=== PATIENT | female | born 1945 | race Caucasian/White ===

== ENCOUNTER → 2023-03-16 11:13 | Outpatient (REF) | payer OTHER, SELFPAY ==
[2023-03-19 06:25] LABS: Pancreatic Elastase, Fecal 667 ug/g (>=100)
== END ==
LOC: REG 11:13
PROVIDERS: ATTENDING PHYSICIAN Internal Medicine; FAMILY PHYSICIAN Family Medicine
DX: R19.7 Diarrhea, unspecified (principal)
CPT/HCPCS: 82653

== ENCOUNTER → 2023-05-26 10:59 | Outpatient (REF) | payer OTHER, SELFPAY ==
[2023-05-26 12:25] LABS: Progesterone 8.03 ng/ml
[2023-05-26 12:40] LABS: Cortisol, Random 17.2 ug/dl
[2023-05-26 12:41] LABS: Estradiol 88.1 pg/ml
[2023-05-27 23:01] LABS: DHEA Sulfate 149 ug/dL (12-154)
[2023-05-28 19:40] LABS: Estrogens, Total 130.5 pg/mL; Estrone 94.5 pg/mL
[2023-05-29 18:50] LABS: Free Testosterone 1.5 pg/mL (0.6-3.8); Sex Hormone Binding Globulin 45 nmol/L (17-125); Total Testosterone,Female/Chil 11 ng/dL (5-32)
== END ==
LOC: REG 10:59
PROVIDERS: ATTENDING PHYSICIAN Family Medicine
DX: Z78.0 Asymptomatic menopausal state (principal)
CPT/HCPCS: 36415; 82533; 82627; 82670; 82671; 84144; 84270; 84402; 84403

== ENCOUNTER → 2023-07-01 14:25 | Outpatient (REF) | payer OTHER, SELFPAY ==
[2023-07-01 16:16] LABS: Free T3 2.67 pg/ml (2.77-5.27); Free T4 0.75 ng/dl (0.78-2.19)
[2023-07-01 16:30] LABS: TSH 3.04 uIU/ml (0.47-4.68)
[2023-07-03 12:39] LABS: Thyroid Peroxidase Ab (TPO) 0.7 IU/mL (0.0-9.0)
[2023-07-03 12:48] LABS: Thyroglobulin 5.7 ng/mL (1.3-31.8); Thyroglobulin Antibodies <0.9 IU/mL (0.0-4.0)
== END ==
LOC: REG 14:25
PROVIDERS: ATTENDING PHYSICIAN Family Medicine
DX: E03.9 Hypothyroidism, unspecified (principal)
CPT/HCPCS: 36415; 84432; 84439; 84443; 84481; 86376; 86800

== ENCOUNTER 2023-08-04 14:55 | Outpatient (RCR) | payer OTHER, SELFPAY | END 2023-08-05 07:35 | disposition home or self-care (01) | LOC: RPT 14:55 | PROVIDERS: ATTENDING PHYSICIAN Family Medicine | DX: M47.816 Spondylosis without myelopathy or radiculopathy, lumbar region (principal); Z73.6 Limitation of activities due to disability | CPT/HCPCS: 97010; 97110; 97162 ==

== ENCOUNTER 2023-08-31 11:06 | Emergency (ER) | payer OTHER, SELFPAY ==
[2023-08-31 11:12] VITALS: BP 167/84
--- NOTE | 2023-08-31 12:07 | ED.MUSCINJ ---
HPI-Injury
General
Chief Complaint: Musculo-Skeletal Complaint
Source: patient
Exam Limitations: none
Time Seen by Provider: 08/31/23 11:51
History of Present Illness-Injury
Initial Injury comments:
78-year-old female presents with 2 days worth of worsening right-sided neck pain. She was rolling over in bed and felt a crack in her neck. Since then she has had pain to the neck with decreased range of motion. She denies any arm pain chest pain
or shortness of breath. She has tried CBD without relief. She is using an ice pack. No other
Past History
Past History
ED Past Medical History: Other (Colon cancer in remission)
ED Past Surgical History: Other ('4 feet of colon resected')
Social History
Tobacco: Non-smoker
Alcohol: None
Personal:
Employment: Employed
Family History
Family History: Other
Phy Exam
Physical Exam
Physical Exam:
General: Well-appearing uncomfortable female no acute respiratory distress
HEENT: Normocephalic atraumatic
Heart: Regular rate and rhythm no murmur
Musculoskeletal exam: Patient is tender diffusely about the cervical spine and the right paraspinous area. She has decreased range of motion of the cervical spine. She has good strength to the upper extremities
Skin is warm no rash
Vascular: 2 + radial pulse right wrist
Injury Course
Orders/Labs/Results
Orders:
Orders
08/31/23 12:05
CR Cervical Spine 2 or 3 Vw Urgent
Comment:
Reason For Exam: neck pain
MDM/Problems Addressed
Differential Diagnosis Includes:
neck pain. Strain vs fracture vs DJD vs radiculopathy
X-rays pending
*Critical Care Note
Total Time (30-74mins, 75-104mins- exclusive of procedures): Not Applicable
Update Note
Update Note:
Xray negative for acute finding. Suspect cervical strain. Patient declined any medications. Recommended warm compresses stable for d/c
ED Attending Note
-
Portions of this chart may have been created with voice recognition software.� Occasional wrong word or��sound alike� substitutions may have occurred due to the inherent limitations of voice recognition software.
Discharge Plan
Departure
Patient Disposition: Home (Routine Discharge)
Date of Disposition: 08/31/23
Time of Disposition: 13:34
Patient with high blood pressure during this ER visit?: No
Discharge Problem:
Cervical strain
Instructions: Muscle and Bone Pain (DC)
Prescriptions:
No Action
calcium carbonate [Antacid (calcium carbonate)] 1 TABLET tablet,chewable
750 mg PO PRN PRN (Reason: gerd)
gabapentin 100 MG capsule
100 mg PO PRN PRN (Reason: pain)
levothyroxine 88 MCG capsule
88 mcg PO PER PROTOCOL
Patient Comments:
takes 4 times a week
levothyroxine 75 MCG capsule
75 mcg PO PER PROTOCOL
Patient Comments:
pt takes three times a week
mvn-mn-vit C-B. [id number] [Airborne Plus Probiotic] 1 EACH tablet,chewable
1 ea PO QIDPRN PRN (Reason: protect bowels)
Biest/Progesterone
0.5 tab PO DAILY
Patient Comments:
Biest/progesterone 215/150mg 1/2 myra/day
sod sulf-pot chloride-mag sulf [Sutab] 1.479 GM tablet
1.479 gm PO ONCE
Referrals:
Barak Reilly, DO [Family Provider] -
Activity Restrictions/Additional Instructions:
Continue with warm compresses. Return if needed, otherwise follow up with PMD.
Interventions
Interventions:
*Risk Screen - Suicide Last Done: 08/31/23 11:12
*General Assessment Last Done: 08/31/23 11:44
*Neglect/Abuse Screening Last Done: 08/31/23 11:12
*ED COVID-19 Vaccine History Last Done: 08/31/23 11:12
ED-Musculoskeletal Assessment Last Done: 08/31/23 11:44
Discharge Date and Time
Print Language: YI
== END 2023-08-31 13:46 | disposition home or self-care (01) ==
LOC: EMR 11:06
PROVIDERS: EMERGENCY PHYSICIAN Emergency Medicine; FAMILY PHYSICIAN Family Medicine
DX: S16.1XXA Strain of muscle, fascia and tendon at neck level, initial encounter (principal); X58.XXXA Exposure to other specified factors, initial encounter; Z85.038 Personal history of other malignant neoplasm of large intestine; Z98.0 Intestinal bypass and anastomosis status; Z91.040 Latex allergy status; Z91.011 Allergy to milk products; Z88.8 Allergy status to other drugs, medicaments and biological substances; Z91.018 Allergy to other foods; Z91.048 Other nonmedicinal substance allergy status
CPT/HCPCS: 99283; 72040

== ENCOUNTER 2023-08-31 11:21 | Outpatient (RCR) | payer OTHER, SELFPAY | END 2023-08-31 23:59 | disposition home or self-care (01) | LOC: RPT 11:21 | PROVIDERS: ATTENDING PHYSICIAN Family Medicine | DX: I89.0 Lymphedema, not elsewhere classified (principal); Z73.6 Limitation of activities due to disability; Z91.81 History of falling | CPT/HCPCS: 97162; 97530 ==

== ENCOUNTER 2023-09-28 15:00 | Outpatient (RCR) | payer OTHER, SELFPAY | END 2023-09-28 23:59 | disposition home or self-care (01) | LOC: RPT 15:00 | PROVIDERS: ATTENDING PHYSICIAN Family Medicine | DX: I89.0 Lymphedema, not elsewhere classified (principal); Z73.6 Limitation of activities due to disability | CPT/HCPCS: 97140; 97164; 97530 ==

== ENCOUNTER → 2023-10-01 14:20 | Outpatient (REF) | payer OTHER, SELFPAY | LOC: RCS 14:20 | PROVIDERS: ATTENDING PHYSICIAN Internal Medicine Cardiovascular Disease; FAMILY PHYSICIAN Family Medicine | DX: R06.02 Shortness of breath (principal) | CPT/HCPCS: 93306 ==

== ENCOUNTER 2023-10-28 15:03 | Outpatient (RCR) | payer OTHER, SELFPAY | END 2023-10-28 23:59 | disposition home or self-care (01) | LOC: RPT 15:03 | PROVIDERS: ATTENDING PHYSICIAN Family Medicine | DX: I89.0 Lymphedema, not elsewhere classified (principal); R22.32 Localized swelling, mass and lump, left upper limb; R22.31 Localized swelling, mass and lump, right upper limb; Z73.6 Limitation of activities due to disability | CPT/HCPCS: 97110; 97140; 97530 ==

== ENCOUNTER 2023-10-31 17:22 | Emergency (ER) | payer OTHER, SELFPAY ==
[2023-10-31 17:26] VITALS: BP 144/72
[2023-10-31 17:47] LABS: % Basophils 0.4 % (0-2); % Eosinophils 1.3 % (0-6); % Immature Granulocytes 0.4 % (0-0.5); % Monocytes 6.5 % (1.7-9.3); % Neutrophils 77.4 % (42.2-75.2); Absolute Eosinophils 0.1 10^3/uL (0-0.7); Absolute Lymphocytes 1.5 10^3/uL (1.2-3.4); Absolute Monocytes 0.7 10^3/uL (0.1-0.6); Absolute Neutrophils 8.4 10^3/uL (1.4-6.5); Hematocrit 35.9 % (37.0-47.0); Mean Corp Hgb Conc. 33.4 g/dL (33.0-37.0); Mean Corpuscular Hgb 28.6 pg (27.0-31.0); Mean Corpuscular Volume 85.5 fL (81.0-99.0); Mean Platelet Volume 8.6 fL (7.4-10.4); Nucleated Red Blood Cells % 0 %; Platelet Count 271 10^3/uL (130-400); Red Cell Dist. Width 15.2 % (11.5-14.5); White Blood Cell Count 10.8 10^3/uL (4.8-10.8)
[2023-10-31 18:05] LABS: ALT (SGPT) 17 U/L (0-35); AST (SGOT) 25 U/L (14-36); Albumin 3.9 g/dl (3.5-5.0); Alkaline Phosphatase 108 U/L (38-126); Blood Urea Nitrogen 18 mg/dl (7-17); Calcium 8.9 mg/dl (8.4-10.2); Carbon Dioxide 24 mmol/L (22-30); Chloride 105 mmol/L (98-107); Glucose 95 mg/dl (70-99); Potassium 4.1 mmol/L (3.5-5.1); Sodium 140 mmol/L (135-145); Total Bilirubin 0.4 mg/dl (0.2-1.3); Total Protein 6.7 g/dl (6.3-8.2); eGFR > 60.00
[2023-10-31 18:11] LABS: COVID-19 Antigen Negative (Negative)
[2023-10-31 18:53] VITALS: BMI 39.0
[2023-10-31 18:56] VITALS: BP 125/71
--- NOTE | 2023-10-31 19:32 | ED.GENMED ---
History of Present Illness
General
Chief Complaint: Cough
Source: patient
Time Seen by Provider: 10/31/23 18:03
History of Present Illness
History of Present Illness:
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
that it seems to be a little bit worse than usual over the last 2 days. Patient also endorses some postnasal drip, sinus congestion, headache and states that over the last 2 days she coughed so hard that it caused her to vomit 1 time. Patient
notes a fever with Tmax of 100 yesterday, has not taken any Motrin or Tylenol today, no known sick contacts recent travel or recent antibiotics. Patient denies chest pain, palpitations, abdominal pain, current nausea, urinary symptoms or any other
concerns.
Past History
Past History
ED Past Medical History: Hypothyroidism and Other (Colon cancer in remission)
ED Past Surgical History: Cholecystectomy and Other ('4 feet of colon resected')
Social History
Tobacco: Non-smoker
Alcohol: None
Drug: None
Personal:
Living: alone
Employment: Employed
Family History
Family History: Other
Review of Systems
Review of Systems
All Other Systems: ROS reviewed and negative except as documented in HPI and ROS
Phy Exam
Physical Exam
Physical Exam:
GENERAL: Alert , in no apparent distress
HEAD: NCAT
EYE: conjunctiva clear
NECK: Supple
ENT: o/p clr, mmm.
CARDIAC: Regular rate and rhythm
LUNGS: Clear breath sounds bilaterally, no acute respiratory distress, no wheezes/rales/rhonchi
NEUROLOGICAL: Alert and oriented
SKIN: Warm and dry, skin intact.
MUSCULOSKELETAL: well perfused.
PSYCH: Normal and appropriate interaction.
Scores
Heart Failure Risk
Heart Failure Risk Score: Not Applicable
Heart Score for Chest Pain Patients
STEMI patient?: Not applicable
Withdrawal Assessment of Alcohol
Withdrawal Assessment Completed?: Not applicable
Course
Orders/Labs/Results
Orders:
Orders
10/31/23 17:39
COVID-19 Antigen Urgent
Source: Nasal Swab
Complete Blood Count/With Diff Urgent
Comprehensive Metabolic Panel Urgent
10/31/23 18:02
CR Chest - 2 Views Urgent
Comment:
Reason For Exam: cough, fever
10/31/23 18:50
Influenza A+B Rapid Molecular Urgent
LATISHA Source: Nasal Swab
Specimen Description:
Abnormal Lab Results
10/31/23
17:39
Hct 35.9 L %
(37.0-47.0)
RDW 15.2 H %
(11.5-14.5)
Absolute Neuts (auto) 8.4 H 10^3/uL
(1.4-6.5)
Absolute Monos (auto) 0.7 H 10^3/uL
(0.1-0.6)
Neutrophils % 77.4 H %
(42.2-75.2)
Lymphocytes % 14.0 L %
(20.5-51.1)
BUN 18 H mg/dl
(7-17)
10/31/23 17:39
10/31/23 17:39
Vital Signs
Initial and Last Documented VS:
Initial Vital Signs
Temp Pulse Resp BP Pulse Ox
100.3 F 89 16 144/72 98
10/31/23 17:26 10/31/23 17:26 10/31/23 17:26 10/31/23 17:26 10/31/23 17:26
Last Documented Vital Signs
Temp Pulse Resp BP Pulse Ox
100.3 F 93 16 125/71 97
10/31/23 17:26 10/31/23 18:53 10/31/23 18:53 10/31/23 18:56 10/31/23 19:30
MDM/Problems Addressed
Differential Diagnosis Includes:
COVID, flu, other viral etiology, bronchitis, pneumonia, PE considered however given the other URI-like symptoms thought to be much less likely
MDM/Problems Addressed:
78-year-old female presenting to the emergency department for evaluation of acute on chronic cough, noted she coughed hard enough to make her vomit. No acute respiratory distress. Does have a low-grade temperature here. Declining any medications
stating she is very sensitive to medications and prefers not to take any. Labs initiated while in triage and patient has no leukocytosis and COVID testing was negative. Will add on a flu test at patient's request. Chest x-ray shows no acute
abnormalities.
*Radiology
Radiology exam reviewed: preliminary read by ED provider (Unremarkable chest x-ray)
*Pulse Oximetry
Patient hypoxic: no
*Critical Care Note
Total Time (30-74mins, 75-104mins- exclusive of procedures): Not Applicable
Data Reviewed
Review of Other/Old Records Reveals: Labs and Radiology Studies
Patient Management
Escalation/DeEscalation of care consider admission/obs:
Flu negative. Pulse ox remains WNL. Stable for d/c home. Offered Rx for abx to hold if symptoms do not improve but patient declines. Advised she follow up with PCP for further eval if symptoms persist
ED Attending Note
-
Portions of this chart may have been created with voice recognition software.� Occasional wrong word or��sound alike� substitutions may have occurred due to the inherent limitations of voice recognition software.
Discharge Plan
Departure
Patient Disposition: Home (Routine Discharge)
Date of Disposition: 10/31/23
Time of Disposition: 19:32
Patient with high blood pressure during this ER visit?: No
Discharge Problem:
URI (upper respiratory infection)
Instructions: Upper respiratory infection in adults - Discharge instructions
Prescriptions:
No Action
calcium carbonate [Antacid (calcium carbonate)] 1 TABLET tablet,chewable
750 mg PO PRN PRN (Reason: gerd)
gabapentin 100 MG capsule
100 mg PO PRN PRN (Reason: pain)
levothyroxine 88 MCG capsule
88 mcg PO PER PROTOCOL
Patient Comments:
takes 4 times a week
levothyroxine 75 MCG capsule
75 mcg PO PER PROTOCOL
Patient Comments:
pt takes three times a week
mvn-mn-vit C-B. [id number] [Airborne Plus Probiotic] 1 EACH tablet,chewable
1 ea PO QIDPRN PRN (Reason: protect bowels)
Biest/Progesterone
0.5 tab PO DAILY
Patient Comments:
Biest/progesterone 215/150mg 1/2 myra/day
sod sulf-pot chloride-mag sulf [Sutab] 1.479 GM tablet
1.479 gm PO ONCE
Referrals:
Barak Reilly, DO [Family Provider] -
Stand Alone Forms: Return to Work
Interventions
Interventions:
*Risk Screen - Suicide Last Done: 10/31/23 17:26
*General Assessment Last Done: 10/31/23 18:53
*Neglect/Abuse Screening Last Done: 10/31/23 17:26
ED- Fall Risk Assessment Last Done: 10/31/23 18:53
*ED COVID-19 Vaccine History Last Done: 10/31/23 18:53
*Nursing Disposition Last Done: 10/31/23 19:38
ED- Pulmonary Assessment Last Done: 10/31/23 18:53
Discharge Date and Time
Discharge Date/Time: 10/31/23 19:42
Print Language: SERBIAN
== END 2023-10-31 19:42 | disposition home or self-care (01) ==
LOC: EMR 17:22
PROVIDERS: EMERGENCY PHYSICIAN Emergency Medicine; FAMILY PHYSICIAN Family Medicine
DX: J06.9 Acute upper respiratory infection, unspecified (principal); E03.9 Hypothyroidism, unspecified; Z85.038 Personal history of other malignant neoplasm of large intestine; Z90.49 Acquired absence of other specified parts of digestive tract
CPT/HCPCS: 99283; 71046; 80053; 85025; 87502; 87811

== ENCOUNTER 2023-11-18 15:01 | Outpatient (RCR) | payer OTHER, SELFPAY | END 2023-11-18 23:59 | disposition home or self-care (01) | LOC: RPT 15:01 | PROVIDERS: ATTENDING PHYSICIAN Family Medicine | DX: I89.0 Lymphedema, not elsewhere classified (principal); R22.32 Localized swelling, mass and lump, left upper limb; R22.31 Localized swelling, mass and lump, right upper limb; Z73.6 Limitation of activities due to disability | CPT/HCPCS: 97016; 97140; 97530 ==

== ENCOUNTER → 2023-12-07 11:40 | Outpatient (REF) | payer OTHER, SELFPAY ==
[2023-12-07 14:03] LABS: Blood Urea Nitrogen 12 mg/dl (7-17); Calcium 8.8 mg/dl (8.4-10.2); Carbon Dioxide 28 mmol/L (22-30); Chloride 103 mmol/L (98-107); Glucose 88 mg/dl (70-99); Potassium 4.5 mmol/L (3.5-5.1); Sodium 141 mmol/L (135-145); eGFR > 60.00
== END ==
LOC: REG 11:40
PROVIDERS: ATTENDING PHYSICIAN Obstetrics & Gynecology Gynecologic Oncology; FAMILY PHYSICIAN Family Medicine
DX: C54.1 Malignant neoplasm of endometrium (principal); Z01.812 Encounter for preprocedural laboratory examination
CPT/HCPCS: 36415; 80048

== ENCOUNTER → 2023-12-10 11:33 | Outpatient (REF) | payer MEDICARE, SELFPAY ==
[2023-12-10 14:18] LABS: % Basophils 0.4 % (0-2); % Eosinophils 1.4 % (0-6); % Immature Granulocytes 0.5 % (0-0.5); % Lymphocytes 22.3 % (20.5-51.1); % Monocytes 6.3 % (1.7-9.3); % Neutrophils 69.1 % (42.2-75.2); Absolute Eosinophils 0.1 10^3/uL (0-0.7); Absolute Lymphocytes 1.7 10^3/uL (1.2-3.4); Absolute Monocytes 0.5 10^3/uL (0.1-0.6); Absolute Neutrophils 5.4 10^3/uL (1.4-6.5); Hematocrit 37.8 % (37.0-47.0); Hemoglobin 12.1 g/dL (12.0-16.0); Mean Corpuscular Hgb 28.4 pg (27.0-31.0); Mean Corpuscular Volume 88.7 fL (81.0-99.0); Mean Platelet Volume 8.8 fL (7.4-10.4); Nucleated Red Blood Cells % 0 %; Platelet Count 306 10^3/uL (130-400); Red Blood Cell Count 4.26 10^6/uL (4.20-5.40); White Blood Cell Count 7.8 10^3/uL (4.8-10.8)
[2023-12-10 14:50] LABS: ALT (SGPT) 17 U/L (0-35); AST (SGOT) 22 U/L (14-36); Albumin 3.9 g/dl (3.5-5.0); Alkaline Phosphatase 111 U/L (38-126); Blood Urea Nitrogen 14 mg/dl (7-17); Calcium 8.4 mg/dl (8.4-10.2); Carbon Dioxide 25 mmol/L (22-30); Chloride 101 mmol/L (98-107); Glucose 84 mg/dl (70-99); Potassium 4.3 mmol/L (3.5-5.1); Sodium 140 mmol/L (135-145); Total Bilirubin 0.4 mg/dl (0.2-1.3); Total Protein 6.8 g/dl (6.3-8.2); eGFR > 60.00
== END ==
LOC: RAD 11:33
PROVIDERS: ATTENDING PHYSICIAN Obstetrics & Gynecology Gynecologic Oncology; FAMILY PHYSICIAN Family Medicine
DX: C54.1 Malignant neoplasm of endometrium (principal); N93.9 Abnormal uterine and vaginal bleeding, unspecified
CPT/HCPCS: 71260; 74177; 80053; 85025; Q9967

== ENCOUNTER → 2023-12-11 10:07 | Outpatient (REF) | payer OTHER, SELFPAY | LOC: WDC 10:07 | PROVIDERS: ATTENDING PHYSICIAN Registered Nurse Oncology; FAMILY PHYSICIAN Family Medicine | DX: N64.52 Nipple discharge (principal) | CPT/HCPCS: 76642; 77062; 77066 ==

== ENCOUNTER 2023-12-14 14:49 | Outpatient (RCR) | payer OTHER, SELFPAY | END 2023-12-14 23:59 | disposition home or self-care (01) | LOC: RPT 14:49 | PROVIDERS: ATTENDING PHYSICIAN Family Medicine | DX: I89.0 Lymphedema, not elsewhere classified (principal); R22.33 Localized swelling, mass and lump, upper limb, bilateral; Z73.6 Limitation of activities due to disability | CPT/HCPCS: 97016; 97110; 97530 ==

== ENCOUNTER → 2024-01-01 18:49 | Outpatient (REF) | payer OTHER, SELFPAY | LOC: MRI 3T 18:49 | PROVIDERS: ATTENDING PHYSICIAN Internal Medicine; FAMILY PHYSICIAN Family Medicine | DX: K86.2 Cyst of pancreas (principal) | CPT/HCPCS: 74183; A9575 ==

== ENCOUNTER → 2024-01-13 12:50 | Outpatient (REF) | payer MEDICARE, SELFPAY ==
[2024-01-13 15:02] LABS: Prolactin 11.7 ng/ml (3.0-18.6)
[2024-01-13 15:16] LABS: TSH 1.81 uIU/ml (0.47-4.68)
== END ==
LOC: REG 12:50
PROVIDERS: ATTENDING PHYSICIAN Internal Medicine
DX: N64.52 Nipple discharge (principal)
CPT/HCPCS: 36415; 84146; 84443

== ENCOUNTER → 2024-01-28 11:36 | Outpatient (REF) | payer MEDICARE, SELFPAY ==
[2024-01-28 13:26] LABS: Free T3 2.87 pg/ml (2.77-5.27)
[2024-01-28 13:39] LABS: Estradiol 456.2 pg/ml
[2024-01-28 13:40] LABS: Cortisol, Random 6.6 ug/dl; TSH 2.53 uIU/ml (0.47-4.68)
[2024-01-28 13:49] LABS: Free T4 0.88 ng/dl (0.78-2.19)
[2024-01-29 14:09] LABS: Thyroid Peroxidase Ab (TPO) 0.7 IU/mL (0.0-9.0)
[2024-01-29 14:24] LABS: Thyroglobulin 6.9 ng/mL (1.3-31.8); Thyroglobulin Antibodies <0.9 IU/mL (0.0-4.0)
[2024-01-30 03:03] LABS: DHEA Sulfate 171 ug/dL (12-154)
[2024-01-31 06:49] LABS: Estradiol, Serum 211.6 pg/mL; Estrogens, Total 370.1 pg/mL; Estrone 158.5 pg/mL
== END ==
LOC: REG 11:36
PROVIDERS: ATTENDING PHYSICIAN Family Medicine
DX: E03.9 Hypothyroidism, unspecified (principal); Z78.0 Asymptomatic menopausal state
CPT/HCPCS: 36415; 82533; 82627; 82670; 82671; 84144; 84270; 84402; 84403; 84432; 84439; 84443; 84481; 86376; 86800

== ENCOUNTER → 2024-02-12 15:56 | Outpatient (REF) | payer MEDICARE, SELFPAY ==
[2024-02-12 17:07] LABS: % Basophils 0.3 % (0-2); % Eosinophils 1.8 % (0-6); % Immature Granulocytes 0.3 % (0-0.5); % Lymphocytes 30.3 % (20.5-51.1); % Monocytes 6.2 % (1.7-9.3); % Neutrophils 61.1 % (42.2-75.2); Absolute Eosinophils 0.2 10^3/uL (0-0.7); Absolute Lymphocytes 2.7 10^3/uL (1.2-3.4); Absolute Monocytes 0.6 10^3/uL (0.1-0.6); Absolute Neutrophils 5.4 10^3/uL (1.4-6.5); Hematocrit 38.9 % (37.0-47.0); Hemoglobin 12.8 g/dL (12.0-16.0); Mean Corp Hgb Conc. 32.9 g/dL (33.0-37.0); Mean Corpuscular Hgb 29.6 pg (27.0-31.0); Mean Platelet Volume 8.7 fL (7.4-10.4); Nucleated Red Blood Cells % 0 %; Platelet Count 299 10^3/uL (130-400); Red Blood Cell Count 4.32 10^6/uL (4.20-5.40); Red Cell Dist. Width 14.5 % (11.5-14.5); White Blood Cell Count 8.9 10^3/uL (4.8-10.8)
[2024-02-12 17:32] LABS: ALT (SGPT) 16 U/L (0-35); AST (SGOT) 22 U/L (14-36); Albumin 3.9 g/dl (3.5-5.0); Alkaline Phosphatase 126 U/L (38-126); Blood Urea Nitrogen 12 mg/dl (7-17); Calcium 8.9 mg/dl (8.4-10.2); Carbon Dioxide 28 mmol/L (22-30); Chloride 104 mmol/L (98-107); Glucose 89 mg/dl (70-99); Potassium 4.3 mmol/L (3.5-5.1); Sodium 140 mmol/L (135-145); Total Bilirubin 0.4 mg/dl (0.2-1.3); Total Protein 6.7 g/dl (6.3-8.2); eGFR > 60.00
== END ==
LOC: REG 15:56
PROVIDERS: ATTENDING PHYSICIAN Family Medicine
DX: R50.9 Fever, unspecified (principal)
CPT/HCPCS: 36415; 80053; 85025

== ENCOUNTER 2024-02-18 16:17 | Outpatient (RCR) | payer MEDICARE, SELFPAY | END 2024-02-19 07:21 | disposition home or self-care (01) | LOC: RPT 16:17 | PROVIDERS: ATTENDING PHYSICIAN Family Medicine | DX: I89.0 Lymphedema, not elsewhere classified (principal); R22.32 Localized swelling, mass and lump, left upper limb; R22.33 Localized swelling, mass and lump, upper limb, bilateral; R22.31 Localized swelling, mass and lump, right upper limb; Z73.6 Limitation of activities due to disability | CPT/HCPCS: 97110; 97530 ==

== ENCOUNTER 2024-03-15 06:34 | Day surgery (SDC) | payer MEDICARE, SELFPAY ==
[2024-03-15 11:50] VITALS: BP 103/72
[2024-03-15 11:53] VITALS: BMI 35.0
[2024-03-15 14:51] VITALS: BP 129/97
[2024-03-15 15:00] VITALS: BP 103/81
[2024-03-15 15:15] VITALS: BP 114/76
== END 2024-03-15 15:42 | disposition home or self-care (01) ==
LOC: SDS 06:34
PROVIDERS: Internal Medicine; ATTENDING PHYSICIAN Internal Medicine Gastroenterology; FAMILY PHYSICIAN Family Medicine
PROC: 0DBP8ZX Excision of Rectum, Via Natural or Artificial Opening Endoscopic, Diagnostic (ICD-10-PCS; 2024-03-15)
PROC: 0DBL8ZX Excision of Transverse Colon, Via Natural or Artificial Opening Endoscopic, Diagnostic (ICD-10-PCS; 2024-03-15)
PROC: 0DBN8ZX Excision of Sigmoid Colon, Via Natural or Artificial Opening Endoscopic, Diagnostic (ICD-10-PCS; 2024-03-15)
DX: Z12.11 Encounter for screening for malignant neoplasm of colon (principal); Z85.038 Personal history of other malignant neoplasm of large intestine; D12.3 Benign neoplasm of transverse colon; D12.5 Benign neoplasm of sigmoid colon; D12.8 Benign neoplasm of rectum; K64.0 First degree hemorrhoids; K57.30 Diverticulosis of large intestine without perforation or abscess without bleeding
CPT/HCPCS: 45390; 45385; 88305

== ENCOUNTER → 2024-05-10 12:01 | Outpatient (REF) | payer MEDICARE, SELFPAY | LOC: DHSLP 12:01 | PROVIDERS: ATTENDING PHYSICIAN Internal Medicine Critical Care Medicine; FAMILY PHYSICIAN Family Medicine | DX: G47.30 Sleep apnea, unspecified (principal); R06.83 Snoring | CPT/HCPCS: 95800 ==

== ENCOUNTER → 2024-05-12 13:40 | Outpatient (REF) | payer MEDICARE, SELFPAY | LOC: EMG 13:40 | PROVIDERS: ATTENDING PHYSICIAN Student in an Organized Health Care Education/Training Program; FAMILY PHYSICIAN Family Medicine | DX: M54.10 Radiculopathy, site unspecified (principal); R20.0 Anesthesia of skin | CPT/HCPCS: 95886; 95910 ==

== ENCOUNTER → 2024-05-18 15:16 | Outpatient (REF) | payer MEDICARE, SELFPAY ==
[2024-05-18 16:30] LABS: Free T3 3.13 pg/ml (2.77-5.27); Free T4 0.84 ng/dl (0.78-2.19)
[2024-05-18 16:43] LABS: TSH 2.05 uIU/ml (0.47-4.68)
[2024-05-20 09:41] LABS: Thyroid Peroxidase Ab (TPO) 0.6 IU/mL (0.0-9.0)
[2024-05-20 09:54] LABS: Thyroglobulin 6.4 ng/mL (1.3-31.8); Thyroglobulin Antibodies <1.5 IU/mL (0.0-4.0)
== END ==
LOC: REG 15:16
PROVIDERS: ATTENDING PHYSICIAN Family Medicine
DX: E03.9 Hypothyroidism, unspecified (principal)
CPT/HCPCS: 36415; 84432; 84439; 84443; 84481; 86376; 86800

== ENCOUNTER → 2024-06-01 11:16 | Outpatient (REF) | payer MEDICARE, SELFPAY ==
[2024-06-01 12:26] LABS: Glycohemoglobin (HgbA1c) 5.7 % (4.0-5.6)
[2024-06-01 12:56] LABS: TSH 3.14 uIU/ml (0.47-4.68)
[2024-06-01 13:16] LABS: Vitamin B12 238 pg/ml (239-931)
== END ==
LOC: REG 11:16
PROVIDERS: ATTENDING PHYSICIAN Student in an Organized Health Care Education/Training Program; FAMILY PHYSICIAN Family Medicine
DX: G62.9 Polyneuropathy, unspecified (principal)
CPT/HCPCS: 36415; 82607; 83036; 83921; 84155; 84165; 84443

== ENCOUNTER → 2024-06-02 11:06 | Outpatient (REF) | payer MEDICARE, SELFPAY ==
[2024-06-02 12:19] LABS: Urine Protein < 5 mg/dl (0-12)
== END ==
LOC: REG 11:06
PROVIDERS: ATTENDING PHYSICIAN Student in an Organized Health Care Education/Training Program; FAMILY PHYSICIAN Family Medicine
DX: G62.9 Polyneuropathy, unspecified (principal)
CPT/HCPCS: 84156

== ENCOUNTER 2024-06-08 11:51 | Outpatient (RCR) | payer MEDICARE, SELFPAY | END 2024-06-08 23:59 | disposition home or self-care (01) | LOC: RPT 11:51 | PROVIDERS: ATTENDING PHYSICIAN Family Medicine | DX: R26.2 Difficulty in walking, not elsewhere classified (principal); M54.51 Vertebrogenic low back pain; Z73.6 Limitation of activities due to disability; R26.89 Other abnormalities of gait and mobility; M51.16 Intervertebral disc disorders with radiculopathy, lumbar region; M62.81 Muscle weakness (generalized); G89.29 Other chronic pain | CPT/HCPCS: 97110; 97112; 97116; 97163 ==

== ENCOUNTER → 2024-06-22 11:02 | Outpatient (REF) | payer MEDICARE, SELFPAY ==
[2024-06-22 13:45] LABS: Progesterone 6.66 ng/ml
[2024-06-22 14:01] LABS: Estradiol 89.6 pg/ml
[2024-06-25 01:29] LABS: DHEA Sulfate 173 ug/dL (12-154)
== END ==
LOC: REG 11:02
PROVIDERS: ATTENDING PHYSICIAN Family Medicine
DX: Z78.0 Asymptomatic menopausal state (principal)
CPT/HCPCS: 36415; 82627; 82670; 82671; 84144; 84270; 84402; 84403

== ENCOUNTER 2024-07-06 11:08 | Outpatient (RCR) | payer MEDICARE, SELFPAY | END 2024-07-06 23:59 | disposition home or self-care (01) | LOC: RPT 11:08 | PROVIDERS: ATTENDING PHYSICIAN Family Medicine | DX: R26.2 Difficulty in walking, not elsewhere classified (principal); M54.51 Vertebrogenic low back pain; Z73.6 Limitation of activities due to disability; R26.89 Other abnormalities of gait and mobility; M51.16 Intervertebral disc disorders with radiculopathy, lumbar region; M62.81 Muscle weakness (generalized); G89.29 Other chronic pain | CPT/HCPCS: 97110; 97112; 97116 ==

== ENCOUNTER 2024-07-27 11:15 | Outpatient (RCR) | payer MEDICARE, SELFPAY | END 2024-07-27 23:59 | disposition home or self-care (01) | LOC: RPT 11:15 | PROVIDERS: ATTENDING PHYSICIAN Family Medicine | DX: R26.2 Difficulty in walking, not elsewhere classified (principal); M54.51 Vertebrogenic low back pain; Z73.6 Limitation of activities due to disability; R26.89 Other abnormalities of gait and mobility; M51.16 Intervertebral disc disorders with radiculopathy, lumbar region; M62.81 Muscle weakness (generalized); G89.29 Other chronic pain | CPT/HCPCS: 97110; 97112; 97116 ==

== ENCOUNTER → 2024-08-11 08:43 | Outpatient (REF) | payer MEDICARE, SELFPAY ==
[2024-08-11 11:23] LABS: Free T3 2.53 pg/ml (2.77-5.27)
[2024-08-11 11:36] LABS: Cortisol, Random 21.2 ug/dl; TSH 3.70 uIU/ml (0.47-4.68)
[2024-08-11 11:56] LABS: Vitamin B12 796 pg/ml (239-931)
== END ==
LOC: REG 08:43
PROVIDERS: ATTENDING PHYSICIAN Family Medicine
DX: Z78.0 Asymptomatic menopausal state (principal)
CPT/HCPCS: 36415; 82533; 82607; 82627; 82670; 82671; 84144; 84270; 84402; 84403; 84439; 84443; 84481

== ENCOUNTER → 2024-08-19 13:04 | Outpatient (REF) | payer MEDICARE, SELFPAY | LOC: RAD 13:04 | PROVIDERS: ATTENDING PHYSICIAN Family Medicine | DX: M25.511 Pain in right shoulder (principal) | CPT/HCPCS: 73030 ==

== ENCOUNTER → 2024-09-14 10:56 | Outpatient (REF) | payer MEDICARE, SELFPAY ==
[2024-09-14 13:15] LABS: Vitamin B12 727 pg/ml (239-931)
== END ==
LOC: REG 10:56
PROVIDERS: ATTENDING PHYSICIAN Student in an Organized Health Care Education/Training Program; FAMILY PHYSICIAN Family Medicine
DX: E53.8 Deficiency of other specified B group vitamins (principal)
CPT/HCPCS: 36415; 82607; 83921

== ENCOUNTER 2024-09-14 17:23 | Emergency (ER) | payer MEDICARE, SELFPAY ==
[2024-09-14 17:26] VITALS: BP 138/68
[2024-09-14 18:02] LABS: Urine Character Slightly Cloudy (Clear)
[2024-09-14 18:04] LABS: Hematocrit 37.0 % (37.0-47.0); Hemoglobin 11.8 g/dL (12.0-16.0); Mean Corp Hgb Conc. 31.9 g/dL (33.0-37.0); Mean Corpuscular Volume 91.4 fL (81.0-99.0); Nucleated Red Blood Cells % 0 %; Platelet Count 269 10^3/uL (130-400); Red Cell Dist. Width 15.8 % (11.5-14.5)
[2024-09-14 18:20] LABS: ALT (SGPT) 17 U/L (0-35); AST (SGOT) 17 U/L (14-36); Albumin 3.9 g/dl (3.5-5.0); Alkaline Phosphatase 94 U/L (38-126); Blood Urea Nitrogen 10 mg/dl (7-17); Calcium 8.4 mg/dl (8.4-10.2); Carbon Dioxide 26 mmol/L (22-30); Chloride 111 mmol/L (98-107); Glucose 97 mg/dl (70-99); Potassium 3.7 mmol/L (3.5-5.1); Sodium 144 mmol/L (135-145); Total Protein 6.6 g/dl (6.3-8.2); eGFR > 60.00
[2024-09-14 18:24] LABS: Urine Squamous Cell 26-30 /LPF (Few)
[2024-09-14 18:34] LABS: Urine White Cell 40-50 /HPF (0-5)
[2024-09-14 21:02] VITALS: BMI 35.9
[2024-09-14 21:09] VITALS: BP 124/80
--- NOTE | 2024-09-14 22:55 | ED.GENMED ---
History of Present Illness
General
Chief Complaint: Urinary Symptoms
Source: patient
Exam Limitations: none
Time Seen by Provider: 09/14/24 21:11
Nursing documentation reviewed up to this point in time: agreed with
History of Present Illness
History of Present Illness:
Patient is a 79-year-old female with history of hypothyroid who presents to the emergency department for evaluation of urinary discomfort for the past week. Patient reports a burning sensation occurring with urination over the past 7 days which has
been progressively worsening. Patient states that earlier this afternoon at home she had significant pain in her lower abdomen as well as dysuria. She was unable to get an appoint with her primary care in the next few days prompting visit to the
emergency department.
Patient denies any associated fever, chills, back/flank pain, nausea/vomiting. She denies any diarrhea or constipation.
Patient does have a history of kidney stones.
Past History
Past History
ED Past Medical History: Hypothyroidism and Other (Colon cancer in remission)
ED Past Surgical History: Cholecystectomy and Other ('4 feet of colon resected')
Social History
Tobacco: Non-smoker
Alcohol: None
Drug: None
Personal:
Living: alone
Employment: Employed
Family History
Family History: Other
Review of Systems
Review of Systems
Allergies reviewed?: Yes
All Other Systems: ROS reviewed and negative except as documented in HPI and ROS
Phy Exam
Physical Exam
Physical Exam:
Vitals: Patient's vital signs are stable. Afebrile
General: Patient is well appearing, no acute distress. Nontoxic appearing
Skin: Warm and dry, no rashes or lesions
Head: Normocephalic, atraumatic
Eyes: Sclera nonicteric. EOMs intact. No nystagmus.
Throat: Protecting airway
Neck: Normal ROM, no cervical spine tenderness, no meningismus
Cardiac: Regular rate and rhythm, no murmurs.
Pulm: Normal respiratory effort, no wheezes, rales, rhonchi heard on exam
Abdomen: Abdomen soft and nontender. No CVA tenderness. No rash.
Extremities: No evidence of cyanosis or edema
Neuro: AAOx3. Grossly intact.
Psychiatric: Normal affect.
Course
Orders/Labs/Results
Orders:
Orders
09/14/24 17:48
Complete Blood Count/With Diff Urgent
Comprehensive Metabolic Panel Urgent
Urinalysis Reflex To Culture Urgent
Date Specimen was Collected: 09/14/24
Time Specimen was Collected: 17:30
Urine Microscopic Reflex Cult Urgent
Urine Culture Urgent
LATISHA Source: U
Specimen Description:
Date Specimen was Collected: 09/14/24
Time Specimen was Collected: 17:30
09/14/24 22:04
Abdomen/Pelvis wo Contrast CT [CT Abd/pelvis Wo Iv Cont] Urgent
Comment: hx kidney stones
Reason For Exam: Dysuria, abdominal pain
09/14/24 23:48
Cefuroxime Axetil [Ceftin] 500 mg PO NOW STA
Abnormal Lab Results
09/14/24
17:48
RBC 4.05 L 10^6/uL
(4.20-5.40)
Hgb 11.8 L g/dL
(12.0-16.0)
MCHC 31.9 L g/dL
(33.0-37.0)
RDW 15.8 H %
(11.5-14.5)
Absolute Monos (auto) 0.7 H 10^3/uL
(0.1-0.6)
Chloride 111 H mmol/L
(98-107)
Ur Occult Blood Reflex 2+ A
(Negative)
Leukocyte Esterase Rfl 3+ A
(Negative)
Urine RBC 3-6 A /HPF
(0-2)
Urine WBC (Reflex) 40-50 A /HPF
(0-5)
Urine Bacteria (Reflex) Few A
(Negative)
Urine Albumin (Reflex) 2+ A
(Neg - Trace)
09/14/24 17:48
09/14/24 17:48
Vital Signs
Initial and Last Documented VS:
Initial Vital Signs
Temp Pulse Resp BP Pulse Ox
98.2 F 85 16 138/68 98
09/14/24 17:26 09/14/24 17:26 09/14/24 17:26 09/14/24 17:26 09/14/24 17:26
Last Documented Vital Signs
Temp Pulse Resp BP Pulse Ox
98.3 F 74 18 140/72 100
09/14/24 21:09 09/15/24 00:09 09/15/24 00:09 09/15/24 00:09 09/15/24 00:09
MDM/Problems Addressed
Differential Diagnosis Includes:
Not limited to: UTI, pyelonephritis, renal colic, etc.
MDM/Problems Addressed:
79-year-old female presenting with 1 week of dysuria and urinary frequency. No abdominal pain, vomiting, or fevers. Vitals stable. Patient is afebrile. Physical exam as above. Patient overall very well-appearing, nontoxic. Abdomen is soft and
with very mild suprapubic tenderness. No CVA tenderness noted. Cardio/pulmonary assessment unremarkable. Symptoms consistent with likely UTI/cystitis. No systemic symptoms concerning for complicated UTI or pyelonephritis. Patient does have
history of kidney stones and states had similar symptoms prior.
Basic labs were sent prior to my evaluation without clinically significant abnormalities. No leukocytosis. Chemistry unremarkable. Urine appears infected.
Will check noncontrast CT scan abdomen/pelvis to rule out obstructing stone and reassess.
Update: CT scan shows no evidence of obstructing stone. Symptoms consistent with cystitis. No systemic symptoms concerning for pyelonephritis. Patient afebrile with no leukocytosis and tolerating oral intake. Feel stable for discharge home with
oral antibiotics. Patient given first dose in emergency department. Advise follow-up with primary care. Very strict return precautions discussed
Chronic conditions affecting care:
N/A
Acute Exacerbation and/or Progression of Chronic Illness:
N/A
*Radiology
Radiology exam reviewed: radiology read reviewed
*Pulse Oximetry
SaO2: 99
Oxygen Mode of Delivery: Room air
Patient hypoxic: no
*EKG
Interpreted by ED Provider?: NA
*Sleeve Maker Interpretation
Rate: Sleeve Maker- N/A
*Critical Care Note
Total Time (30-74mins, 75-104mins- exclusive of procedures): Not Applicable
ED Attending Note
-
Portions of this chart may have been created with voice recognition software.� Occasional wrong word or��sound alike� substitutions may have occurred due to the inherent limitations of voice recognition software.
Discharge Plan
Departure
Patient Disposition: Home (Routine Discharge)
Date of Disposition: 09/14/24
Time of Disposition: 23:45
Patient with high blood pressure during this ER visit?: Yes
Discharge Problem:
Acute UTI
Instructions: Urinary Tract Infection, Adult (DC), BLOOD PRESSURE
Prescriptions:
New
cefuroxime axetil 500 mg tablet
500 mg PO BID 7 Days Qty: 14 0RF
phenazopyridine [Pyridium] 200 mg tablet
200 mg PO PC PRN (Reason: Pain) Qty: 6 0RF
No Action
Biest/Progesterone
1 tab PO DAILY
Patient Comments:
Biest/progesterone 215/150mg 1/2 myra/day
Baking Soda
0.25 tsp PO BID
colestipol 1 gram Tablet
1 g PO DAILY
Referrals:
Barak Reilly DO [Family Provider, Family Practice] - Follow up in 5-7 days
Activity Restrictions/Additional Instructions:
RETURN TO THE EMERGENCY DEPARTMENT ANY FEVER, CHILLS, NAUSEA/VOMITING, DIFFICULTIES URINATING, ABDOMINAL OR BACK PAIN, WORSENING IN CURRENT SYMPTOMS, OR ANY OTHER CONCERNS
- As discussed�your urine showed evidence of infection in the emergency department. There is no evidence of a kidney stone.
- A prescription for antibiotic has been sent to your pharmacy. Please take this twice a day for the next week.
- You can take the prescription for Pyridium as needed for persistent urinary discomfort for the next 2 days. It is important to stay well-hydrated.
- Follow-up with primary care for further evaluation/management to ensure that your symptoms are improving
Monitor your symptoms closely and return to the emergency department with any acute worsening/new symptoms or any other concerns
Interventions
Interventions:
*Risk Screen - Suicide Last Done: 09/14/24 17:26
*General Assessment Last Done: 09/14/24 21:04
*Neglect/Abuse Screening Last Done: 09/14/24 17:26
*ED- Fall Risk Assessment Last Done: 09/14/24 21:04
*ED COVID-19 Vaccine History Last Done: 09/14/24 21:04
*Nursing Disposition Last Done: 09/15/24 00:09
ED-Female Genitourinary Assessment Last Done: 09/14/24 21:03
Discharge Date and Time
Discharge Date/Time: 09/15/24 00:10
Print Language: CZECH
[2024-09-14 23:02] VITALS: BP 153/73
[2024-09-14] MEDS: CEFTIN 500 MG PO (23:59)
[2024-09-15 00:09] VITALS: BP 140/72
== END 2024-09-15 00:10 | disposition home or self-care (01) ==
LOC: EMR 17:23
PROVIDERS: Emergency Medicine; EMERGENCY PHYSICIAN Emergency Medicine; FAMILY PHYSICIAN Family Medicine
DX: N39.0 Urinary tract infection, site not specified (principal); E03.9 Hypothyroidism, unspecified; Z85.038 Personal history of other malignant neoplasm of large intestine; Z87.442 Personal history of urinary calculi
CPT/HCPCS: 99284; 74176; 80053; 81003; 81015; 85025; 87086

== ENCOUNTER 2024-10-05 11:29 | Outpatient (RCR) | payer MEDICARE, SELFPAY | END 2024-10-05 23:59 | disposition home or self-care (01) | LOC: RPT 11:29 | PROVIDERS: ATTENDING PHYSICIAN Orthopaedic Surgery Hand Surgery; FAMILY PHYSICIAN Family Medicine | DX: M25.511 Pain in right shoulder (principal); R20.0 Anesthesia of skin; M62.81 Muscle weakness (generalized); Z73.6 Limitation of activities due to disability | CPT/HCPCS: 97010; 97110; 97140; 97162 ==

== ENCOUNTER → 2024-10-09 10:54 | Outpatient (REF) | payer MEDICARE, SELFPAY | LOC: PAVMRI 10:54 | PROVIDERS: ATTENDING PHYSICIAN Psychiatry & Neurology Neurology; FAMILY PHYSICIAN Family Medicine | DX: E53.8 Deficiency of other specified B group vitamins (principal) | CPT/HCPCS: 70551 ==

== ENCOUNTER 2024-10-17 15:10 | Outpatient (RCR) | payer MEDICARE, SELFPAY | END 2024-10-17 23:59 | disposition home or self-care (01) | LOC: RPT 15:10 | PROVIDERS: ATTENDING PHYSICIAN Orthopaedic Surgery Hand Surgery; FAMILY PHYSICIAN Family Medicine | DX: M25.511 Pain in right shoulder (principal); Z73.6 Limitation of activities due to disability; R20.0 Anesthesia of skin; M62.81 Muscle weakness (generalized) | CPT/HCPCS: 97010; 97110; 97112; 97140 ==

== ENCOUNTER 2024-10-21 18:09 | Emergency (ER) | payer MEDICARE, SELFPAY ==
[2024-10-21 18:18] VITALS: BP 140/71
[2024-10-21 19:19] LABS: COVID-19 Antigen Positive (Negative)
[2024-10-21 22:05] LABS: Hematocrit 40.6 % (37.0-47.0); Hemoglobin 13.0 g/dL (12.0-16.0); Mean Corp Hgb Conc. 32.0 g/dL (33.0-37.0); Mean Corpuscular Volume 90.0 fL (81.0-99.0); Nucleated Red Blood Cells % 0 %; Platelet Count 255 10^3/uL (130-400); Red Cell Dist. Width 15.4 % (11.5-14.5)
[2024-10-21 22:30] LABS: ALT (SGPT) 29 U/L (0-35); AST (SGOT) 26 U/L (14-36); Albumin 4.5 g/dl (3.5-5.0); Alkaline Phosphatase 116 U/L (38-126); Blood Urea Nitrogen 18 mg/dl (7-17); Calcium 9.6 mg/dl (8.4-10.2); Carbon Dioxide 28 mmol/L (22-30); Chloride 103 mmol/L (98-107); Glucose 107 mg/dl (70-99); Potassium 5.0 mmol/L (3.5-5.1); Sodium 139 mmol/L (135-145); Total Protein 7.8 g/dl (6.3-8.2); eGFR > 60.00
--- NOTE | 2024-10-21 22:53 | ED.GENMED ---
History of Present Illness
General
Chief Complaint: Fever
Source: patient
Time Seen by Provider: 10/21/24 22:42
History of Present Illness
History of Present Illness:
79-year-old female presents to the emergency room complaining of sore throat, body aches, runny nose, postnasal drip, burning eyes, sinus congestion and a mild cough. Symptoms began 2 days ago. No shortness of breath. No chest pain or abdominal
pain.
Past History
Past History
ED Past Medical History: Hypothyroidism and Other (Colon cancer in remission)
ED Past Surgical History: Cholecystectomy and Other ('4 feet of colon resected')
Social History
Tobacco: Non-smoker
Alcohol: None
Drug: None
Personal:
Living: alone
Employment: Employed
Family History
Family History: Other
Phy Exam
Physical Exam
Physical Exam:
General: Awake, Alert, Oriented X3. No acute distress.
Vitals: Mildly febrile
Head: Atraumatic
Eyes: Pupils equal, EOMI
Throat: Airway intact, no exudates
Neck: Trachea midline
Lungs: Clear and equal b/l
Heart: Regular rate, no murmurs
Abd: Soft, Nontender, No pulsatile mass
Neuro: Nonfocal
Skin: Warm, dry, no rash
Extremities: pulses equal b/l, no edema
Course
Orders/Labs/Results
Orders:
Orders
10/21/24 18:27
COVID-19 Antigen Urgent
Source: Nasal Swab
Influenza A+B Rapid Molecular Urgent
LATISHA Source: Nasal Swab
Specimen Description:
10/21/24 21:55
Complete Blood Count/With Diff Urgent
Comprehensive Metabolic Panel Urgent
Abnormal Lab Results
10/21/24 10/21/24
18:27 21:55
MCHC 32.0 L g/dL
(33.0-37.0)
RDW 15.4 H %
(11.5-14.5)
Absolute Monos (auto) 0.9 H 10^3/uL
(0.1-0.6)
Monocytes % 12.4 H %
(1.7-9.3)
BUN 18 H mg/dl
(7-17)
Glucose 107 H mg/dl
(70-99)
SARS-CoV-2 Antigen Positive A
(Negative)
10/21/24 21:55
10/21/24 21:55
Vital Signs
Initial and Last Documented VS:
Initial Vital Signs
Temp Pulse Resp BP Pulse Ox
99.1 F 96 18 140/71 95
10/21/24 18:18 10/21/24 18:18 10/21/24 18:18 10/21/24 18:18 10/21/24 18:18
Last Documented Vital Signs
Temp Pulse Resp BP Pulse Ox
100.6 F H 96 18 140/71 95
10/21/24 21:52 10/21/24 18:18 10/21/24 18:18 10/21/24 18:18 10/21/24 22:57
MDM/Problems Addressed
Differential Diagnosis Includes:
COVID, flu, viral URI
MDM/Problems Addressed:
Patient presents with symptoms consistent with a upper respiratory infection. COVID is positive. Discussed Paxlovid but given its side effect of diarrhea and the patient's already existing problem with significant chronic diarrhea this would not
be appropriate for her.
*Pulse Oximetry
SaO2: 95
Oxygen Mode of Delivery: Room air
Patient hypoxic: no
*Critical Care Note
Total Time (30-74mins, 75-104mins- exclusive of procedures): Not Applicable
ED Attending Note
-
Portions of this chart may have been created with voice recognition software.� Occasional wrong word or��sound alike� substitutions may have occurred due to the inherent limitations of voice recognition software.
Discharge Plan
Departure
Patient Disposition: Home (Routine Discharge)
Date of Disposition: 10/21/24
Time of Disposition: 22:53
Patient with high blood pressure during this ER visit?: Yes
Condition: Good
Discharge Problem:
COVID-19
Instructions: COVID-19 in adults - ED (DC), BLOOD PRESSURE
Prescriptions:
No Action
Biest/Progesterone
1 tab PO DAILY
Patient Comments:
Biest/progesterone 215/150mg 1/2 myra/day
Baking Soda
0.25 tsp PO BID
colestipol 1 gram Tablet
1 g PO DAILY
cefuroxime axetil 500 mg tablet
500 mg PO BID 7 Days Qty: 14 0RF
phenazopyridine [Pyridium] 200 mg tablet
200 mg PO PC PRN (Reason: Pain) Qty: 6 0RF
Referrals:
Barak Reilly DO [Family Provider, Family Practice]
Stand Alone Forms: Return to Work
Interventions
Interventions:
*Risk Screen - Suicide Last Done: 10/21/24 18:18
*Neglect/Abuse Screening Last Done: 10/21/24 18:23
Discharge Date and Time
Print Language: IRANIAN
[2024-10-21 23:13] VITALS: BMI 36.1
== END 2024-10-21 23:20 | disposition home or self-care (01) ==
LOC: EMR 18:09
PROVIDERS: Emergency Medicine; EMERGENCY PHYSICIAN Emergency Medicine; FAMILY PHYSICIAN Family Medicine
DX: U07.1 COVID-19 (principal); M79.10 Myalgia, unspecified site; E03.9 Hypothyroidism, unspecified; Z85.038 Personal history of other malignant neoplasm of large intestine; Z90.49 Acquired absence of other specified parts of digestive tract
CPT/HCPCS: 99283; 80053; 85025; 87502; 87811

== ENCOUNTER → 2024-12-24 11:06 | Outpatient (REF) | payer MEDICARE, SELFPAY ==
[2024-12-24 12:08] LABS: Hematocrit 38.9 % (37.0-47.0); Hemoglobin 12.5 g/dL (12.0-16.0); Mean Corp Hgb Conc. 32.1 g/dL (33.0-37.0); Mean Corpuscular Volume 91.5 fL (81.0-99.0); Nucleated Red Blood Cells % 0 %; Platelet Count 271 10^3/uL (130-400); Red Cell Dist. Width 15.5 % (11.5-14.5)
[2024-12-24 12:34] LABS: ALT (SGPT) 18 U/L (0-35); AST (SGOT) 19 U/L (14-36); Albumin 3.8 g/dl (3.5-5.0); Alkaline Phosphatase 88 U/L (38-126); Blood Urea Nitrogen 12 mg/dl (7-17); Calcium 8.3 mg/dl (8.4-10.2); Carbon Dioxide 28 mmol/L (22-30); Chloride 107 mmol/L (98-107); Glucose 88 mg/dl (70-99); Potassium 4.0 mmol/L (3.5-5.1); Sodium 141 mmol/L (135-145); Total Protein 6.7 g/dl (6.3-8.2); eGFR > 60.00
[2024-12-24 12:49] LABS: Free T3 2.77 pg/ml (2.77-5.27)
[2024-12-24 13:03] LABS: Cortisol, Random 20.0 ug/dl; TSH 1.65 uIU/ml (0.47-4.68)
== END ==
LOC: REG 11:06
PROVIDERS: ATTENDING PHYSICIAN Family Medicine
DX: R53.83 Other fatigue (principal)
CPT/HCPCS: 36415; 80053; 82533; 84439; 84443; 84481; 85025

== ENCOUNTER 2025-01-03 11:27 | Outpatient (RCR) | payer MEDICARE, SELFPAY | END 2025-01-03 23:59 | disposition home or self-care (01) | LOC: RPT 11:27 | PROVIDERS: ATTENDING PHYSICIAN Family Medicine | DX: I89.0 Lymphedema, not elsewhere classified (principal); Z73.6 Limitation of activities due to disability; M62.81 Muscle weakness (generalized); M25.511 Pain in right shoulder; R26.89 Other abnormalities of gait and mobility; Z85.038 Personal history of other malignant neoplasm of large intestine | CPT/HCPCS: 97110; 97140; 97163; 97530 ==

== ENCOUNTER → 2025-01-11 12:00 | Outpatient (REF) | payer MEDICARE, SELFPAY ==
[2025-01-14 04:21] LABS: HSV 1/2 Combined Screen, IgG >22.40 IV (<=0.89)
== END ==
LOC: REG 12:00
PROVIDERS: ATTENDING PHYSICIAN Family Medicine
DX: R53.83 Other fatigue (principal)
CPT/HCPCS: 36415; 86663; 86664; 86665; 86694; 87497

== ENCOUNTER 2025-02-03 14:13 | Outpatient (RCR) | payer MEDICARE, SELFPAY | END 2025-02-03 23:59 | disposition home or self-care (01) | LOC: RPT 14:13 | PROVIDERS: ATTENDING PHYSICIAN Family Medicine | DX: I89.0 Lymphedema, not elsewhere classified (principal); Z73.6 Limitation of activities due to disability; M62.81 Muscle weakness (generalized); M25.511 Pain in right shoulder; R26.89 Other abnormalities of gait and mobility; Z85.038 Personal history of other malignant neoplasm of large intestine | CPT/HCPCS: 97110; 97140; 97530 ==